=== PATIENT | female | born 1980 | race Caucasian/White ===

== ENCOUNTER 2020-11-26 05:08 | Day surgery (SDC) | payer OTHER ==
[2020-11-22 11:19] LABS: HEMATOCRIT 42.8 % (36.0-48.0); HEMOGLOBIN 14.5 g/dL (12-16); MCH 30.3 pg (26.0-34.0); MCHC 33.9 g/dL (31.0-37.0); MCV 89.5 fL (80.0-100.0); MEAN PLATELET VOLUME 10.8 fL (7.4-10.4); RBC 4.78 10x6/uL (4.00-5.40); RDW 12.8 % (11.5-14.5)
[~2020-11-26] VITALS: Ht 175.3 cm; Wt 82.6 kg
--- NOTE | ~2020-11-26 | OP ---
PATIENT NAME: SARAH HINES MEDICAL RECORD: [id number] :76 LOCATION:D.OPS ADMISSION DATE: SURGEON: JOVAN PURI DO DATE OF OPERATION: 11/26/2020 PREOPERATIVE DIAGNOSIS: Abnormal Pap smear. POSTOPERATIVE DIAGNOSIS: Abnormal Pap smear. PRIMARY SURGEON: Jovan Puri DO ANESTHESIA: General LMA. PROCEDURE: Loop electrosurgical excision procedure. FINDINGS: Normal appearing external genitalia, normal appearing vaginal vault, normal appearing cervix. SPECIMENS: Anterior lip of ectocervix, posterior lip of ectocervix, portion of the endocervix. ESTIMATED BLOOD LOSS: 2 cc. INTRAVENOUS FLUIDS: 1 liter. URINE OUTPUT: Zero cc. COMPLICATIONS: None. CONDITION: Stable. DESCRIPTION OF PROCEDURE: The risks, benefits, alternatives and indications of the procedure were discussed with the patient. She voiced understanding of the procedure and signed the consent. She was taken to the OR where general anesthesia was administered and found to be adequate. She was placed in the dorsal lithotomy position. She was prepped and draped in the normal sterile fashion. A speculum was placed in the posterior aspect of the vagina and the cervix was fully visualized. A medium loop electrode was used to take a portion of the anterior lip of the ectocervix, the posterior lip of the ectocervix and the small loop electrode was used to remove a portion of the endocervix and all specimens were sent to pathology. The rollerball electrocautery was used to coagulate the area of the excision with good hemostasis noted at the end of the procedure. All instruments were removed from the vagina. Hemostasis was adequate. All lap, sponge, and instrument counts were correct times 2. The patient tolerated the procedure well and she was awakened and taken to the recovery room in stable condition. TRANSINT:[id number] Voice Confirmation ID: [id number] DOCUMENT ID: [id number] OPERATIVE REPORT [id number] SARAH HINSE JOVAN PURI DO CC: [id number] DICTATION DATE: 12/06/20 1133 ROLL SETTER: 12/06/20 1223 [facility] 11/26/20 [facility] [address] [place] [address]
[~2020-11-26 05:08] MED LIST: CAMILA0.35 MG PO; CBD GUMMIE PO; FERROUS SULFAT325 MG PO; FLUTICASONE PRO16 GM NASAL; MELATONIN5 M3 PO; MULTI-DAY VITAM1 TAB PO; PROVERA10 MG PO; ZYRTEC10 MG PO; [UNRECOGNIZED DRUG - OTHER] PO
[2020-11-26 06:33] VITALS: BP 117/79; Ht 175.3 cm; Wt 82.6 kg
[2020-11-26 06:47] LABS: HCG URINE NEGATIVE (NEGATIVE)
== END 2020-11-26 09:30 | disposition home or self-care (01) ==
LOC: D.OPS 05:08
PROVIDERS: Anesthesiology; ATTEND Student in an Organized Health Care Education/Training Program
DX: R87.619 Unspecified abnormal cytological findings in specimens from cervix uteri (principal)

== ENCOUNTER 2021-01-07 05:00 | Day surgery (SDC) | payer OTHER ==
[2021-01-03 10:50] LABS: BASOPHILS 0.5 % (0-2); EOSINOPHILS 2.4 % (0-7); HEMATOCRIT 41.2 % (36.0-48.0); LYMPHOCYTES 28.9 % (15-50); MCH 30.5 pg (26.0-34.0); MCHC 34.1 g/dL (31.0-37.0); MCV 89.6 fL (80.0-100.0); MEAN PLATELET VOLUME 8.4 fL (7.4-10.4); MONOCYTES 6.2 % (2-11); PLATELET COUNT 315 10x3/uL (130-400); RDW 13.5 % (11.5-14.5)
[2021-01-03 11:01] LABS: CALC OSMOLALITY 274 mosm/kg (275-300); CALCIUM 8.8 mg/dL (8.5-10.1); CARBON DIOXIDE 25.4 mmol/L (21.0-32.0); CHLORIDE - SERUM 106 mmol/L (98-107); CREATININE - SERUM 0.6 mg/dL (0.6-1.3); GLUCOSE 89 mg/dL (74-106); POTASSIUM - SERUM 3.9 mmol/L (3.5-5.1); SODIUM 139 mmol/L (136-145); UREA NITROGEN 8 mg/dL (7-18); eGFR NON AFRICAN AMERICAN > 90 mL/min (90-120)
[~2021-01-07] VITALS: Ht 175.3 cm; Wt 86.4 kg
[2021-01-07] VITALS (7 sets, daily range): BP systolic 119–127; BP diastolic 64–81; Ht 175.3 cm; Wt 86.4 kg
--- NOTE | ~2021-01-07 | OP ---
PATIENT NAME: SARAH CRUZ MEDICAL RECORD: [id number] :76 LOCATION:[id number] ADMISSION DATE: SURGEON: JOVAN PURI DO DATE OF OPERATION: 01/07/2021 PREOPERATIVE DIAGNOSIS: Abnormal uterine bleeding. POSTOPERATIVE DIAGNOSIS: Abnormal uterine bleeding. PRIMARY PHYSICIAN: Jovan Puri DO WEIGHER PACKING SURGEON: Katie Sepulveda DO ANESTHESIA: General ET tube. PROCEDURE: Total laparoscopic hysterectomy, bilateral salpingectomy and cystoscopy. FINDINGS: Normal appearing external genitalia, normal appearing vaginal vault. Normal appearing cervix. Uterus sounded to 7 cm. Normal appearing uterus with small subserosal fibroids. Normal appearing fallopian tubes, status post tubal ligation, normal appearing bilateral ovaries. Following the hysterectomy, bladder intact with no sutures visible. Positive bilateral ureteral jets. SPECIMENS: Uterus, cervix and portions of bilateral fallopian tubes. ESTIMATED BLOOD LOSS: 15 mL. IV FLUIDS: 1800 mL. URINE OUTPUT: 150 mL clear urine. COMPLICATIONS: None. CONDITION: Stable. DESCRIPTION OF PROCEDURE: The risks, benefits, alternatives, and indications of the procedure were discussed with the patient. She voiced understanding of the procedure and signed the consent. She was taken to the OR where general anesthesia was administered and found to be adequate. She was placed in the dorsal lithotomy position. She was prepped and draped in the normal sterile fashion. A Valadez catheter was inserted under sterile technique. A speculum was placed in the posterior aspect of the vagina and a single tooth tenaculum was used to grasp the anterior lip of the cervix. The uterus was sounded to 7 cm. The cervix was dilated to accommodate the VCare uterine manipulator. The VCare uterine manipulator was placed without difficulty and all other instruments were removed from the vagina at that time. Gloves were changed and attention was then turned to the abdomen. Marcaine was placed in the umbilical fold and a 5-mm incision was created with the scalpel in the umbilical fold. Two towel clamps were used to elevate the abdomen and a 5-mm port was placed with the laparoscope for visualization. Pneumoperitoneum was achieved to 15 mmHg. The patient was placed in Trendelenburg position. A left lower quadrant port was placed at 2 cm superior and 2 cm medial to the left ASIS under direct laparoscopic visualization. A right port was placed 2 cm superior, 2 cm medial to the right ASIS under direct laparoscopic visualization. The bowel was OPERATIVE REPORT [id number] SARAH CRUZ displaced out of the pelvis. The uterus was palpated from below and revealed above findings. Beginning on the right side, the fallopian tube was lifted towards the anterior abdominal wall to expose the mesosalpinx. Working from distal to proximal, the mesosalpinx was coagulated and cut with the Thunderbeat device, hugging adjacent to the tube from distal to proximal in the direction of the cornua. Once the cornua was reached, the tube was ligated and cut and the portion of the fallopian tube was placed in the posterior cul-de-sac to remove. Once the uterus was removed through the vagina, the entire procedure was then repeated on the left. On the right side, the right round ligament was coagulated with the Thunderbeat device and cut and the anterior leaf of the broad ligament was taken down on the right side, dissecting towards the peritoneal reflection at the base of the bladder and adjacent to the cervix. The same process was then repeated on the left side such that both sides met midline and the anterior leaflet had been appropriately skeletonized. Once the bladder was appropriately dissected free from the anterior lower uterine segment and the tissues were skeletonized. Uterine arteries were bilaterally coagulated and cut with good hemostasis noted at the pedicles. At the level of the plastic cup of the uterine manipulator, the vaginal vault was incised circumferentially with the Thunderbeat device. The uterus and tubes were removed through the vagina and sent to pathology. A sterile glove was then placed into the vagina to form a pneumatic seal and all the pedicles as well as the cuff edges were examined. Good hemostasis was noted. Pneumoperitoneum was released and attention was turned to the vagina. The vaginal vault was closed vaginally with 0 Vicryl suture in a running fashion with good hemostasis noted. Gloves were changed and pneumoperitoneum was achieved again to 15 mmHg and the camera was used to ensure a good vaginal cuff closure as well as hemostasis. Hemostasis was adequate as well as the cuff closure. Pneumoperitoneum was released and all ports were removed from the abdomen. Camera was removed from the abdomen. The port sites were closed with 3-0 Monocryl suture and Dermabond covering. Attention was then turned to the cystoscopy portion of the procedure to ensure patent ureters as well as to make sure that the bladder was intact after vaginal closure. The Valadez was removed from the bladder and the cystoscope was inserted. There were no sutures or defects in the bladder noted and good ureteral jets were noted bilaterally. The cystoscope was removed and the Valadez was replaced. All needle, lap, sponge, and instrument counts were correct times 2. The patient tolerated the procedure well and she was awakened and taken to the recovery room in stable condition. TRANSINT:[id number] Voice Confirmation ID: [id number] DOCUMENT ID: [id number] JOVAN PURI DO CC: [id number] DICTATION DATE: 01/08/21 1054 SCREENING REPRESENTATIVE: 01/08/21 1121 [facility] [address] [place] [id number]
[2021-01-07 06:49] LABS: HCG URINE NEGATIVE (NEGATIVE)
--- NOTE | 2021-01-07 11:00 | NUR ---
RECEIVED BY BED TO ROOM FROM OR RECOVERY. SHE IS AWAKE AND ALERT AND ASKING WHERE HER IS AND COULD SOMEONE PLEASE CALL AND GIVE HIM HER ROOM NUMBER. RECOVERY NURSE DOES THIS NOW.
--- NOTE | 2021-01-07 11:12 | NUR ---
RATES PAIN/CRAMPING AT 2/10, C/O THAT SHE FEELS THE URGE TO PEE, SHE STATES UNDERSTANDING THAT TERRAZAS CATH IN PLACE TO DRAIN HER BLADDER, AND THAT WHAT SHE WAS FEELING WAS NORMAL SENSATION. ABD SOFT TO TOUCH AND SHE DENIES PAIN OR TENDERNESS AT THIS TIME, LAB INCISION NOTED TO RLQ AND UMBILICAL AREA. BOTH ARE CLEAN AND DRY WITH DERMABOND IN PLACE. TERRAZAS TO BEDSIDE DRAIN, 200ML BLUE COLORED URINE NOTED TO UROMETER. IV TO LEFT WRIST PATENT AND INFUSING PER ORDERS. DENIES NAUSEA AT THIS TIME. LARGE CUP OF ICE WATER REQUESTED. SIDE RAILS UP X 2 WITH PHONE AND CALL LIGHT IN REACH.
--- NOTE | 2021-01-07 11:15 | NUR ---
PT SPOUSE AT BEDSIDE. SHE CONTINUES TO RATE PAIN AT 2/10. DENIES NEEDS
--- NOTE | 2021-01-07 13:00 | NUR ---
RATES PAIN AT 0/10 AT THIS TIME. JELLO AND LARGE CUP OF ICE REQUESTED. NO OTHER NEEDS AT THIS TIME. CALL LIGHT IN REACH, SIDE RAILS UP X 2 AND SPOUSE PRESENT.
--- NOTE | 2021-01-07 13:15 | NUR ---
BONDING WITH INFANT, RATES PAIN AT 3/10. NEW ICE PACK PROVIDED REQUESTED ALONG WITH LARGE ICE WATER. FUNDUS FIRM AT U/1 WITH LIGHT BLEEDING NOTED. 350ML CLEAR URINE TO UROMETER. CALL LIGHT IN REACH
--- NOTE | 2021-01-07 16:30 | NUR ---
DR PURI AT BEDSIDE.
--- NOTE | 2021-01-07 17:00 | NUR ---
IV SALINE LOCKED AND FLUSHED EASILY WITH 5ML NS. TERRAZAS D/C WITH CATH NOTED TO BE INTACT. TOTAL OF 2200ML CLEAR URINE NOTED. PT ABLE TO GET SELF UP TO BATHROOM AND VOIDS 100ML WITHOUT COMPLAINT. PT AND SPOUSE AMB TO NURSERY WINDOW.
--- NOTE | 2021-01-07 17:22 | NUR ---
BACK TO ROOM, LARGE CUP OF ICE REQUESTED. DENIES DINNER TRAY STATES THAT HER IS GOING TO GO PICK SOMETHING UP. RATES PAIN AT 3/10 AT THIS TIME. CALL LIGHT IN REACH WITH SIDE RAILS UP X 2.
--- NOTE | 2021-01-07 19:30 | NUR ---
FIRST MET PT WHILE SHE WAS IN THE HALLS WALKING. SHE IS DOING WELL WITH NO PAIN AT THIS TIME. EXPLAINED TO PT THAT I WOULD BE IN HER ROOM SOON FOR FULL ASSESSMENT.
--- NOTE | 2021-01-07 20:15 | NUR ---
ASSESSMENT COMPLETED. PT STILL WALKS THE HALLS FREQUENTLY. PT IS S/P LAP CHATA. SHE HAS THREE SMALL INCISIONS WHICH LOOK GOOD. THERE IS NOT DRAINAGE OR REDNESS NOTED AT ALL. HER TERRAZAS CATHETER IS OUT AND SHE IS VOIDING WELL. HER IS HERE. PT HAS NO C/O PAIN AND HAS TAKEN NO PAIN MEDS. SHE STATES SHE FEELS UNCOMFORTABLE LIKE BLOATING IN HER ABD. SHE HAS NO C/O OR NEEDS AT THIS TIME.
--- NOTE | 2021-01-07 21:30 | NUR ---
PT READY TO SLEEP. FOUND A SCD PUMP AND HER SCD'S ARE ON FOR SLEEP. SHE WAS INSTRUCTED HOW TO TAKE THE SCDS ON AND OFF SO SHE CAN GO TO THE BR. SHE ALSO KNOWS THAT ALL SHE HAS TO DO IS CALL ME AND I'LL BE THERE TO ASSIST HER.
--- NOTE | 2021-01-07 21:34 | NUR ---
PT GIVEN HER ORDERED TORADOL. SHE C/O OF HOW BAD THE MEDICATION HURT GOING IN THE VEIN. WITH THE FLUSH THAT FOLLOWED THIS BURNING EASED. THIS WAS HER THIRD AND LAST DOSE. (09/11) SHE GOT UP TO THE BR AND I WATCHED HER TAKE THE SCD OFF AND SHE DID QUITE WELL.
[2021-01-08 00:45] VITALS: BP 101/56
--- NOTE | 2021-01-08 00:48 | NUR ---
IN PT ROOM FOR VS. PT ACTED UNCOMFORTABLE. I ASKED HER IF SHE WAS HURTING. I TOLD HER TO LET ME GET HER SOME PAIN MEDS IF SHE WAS HURTING. SHE ADMITTED THAT SHE HAD PAIN THAT SHE RATED A 7. I BROUGHT HER A NORCO 10 MG PO WHICH SHE TOOK. HER IS IN THE ROOM WITH HER.
--- NOTE | 2021-01-08 03:12 | NUR ---
PT IS SLEEPING. NO C/O OR NEEDS AT THIS TIME. ASLEEP AT BEDSIDE.
--- NOTE | 2021-01-08 05:29 | NUR ---
PT CONT TO REST WITH HER EYES CLOSED.
--- NOTE | 2021-01-08 08:20 | NUR ---
DR. PURI ON UNIT, VERBAL ORDER RECEIVED FROM TO HAVE CBC DRAWN NOW. CBC ORDERED.
[2021-01-08 09:31] LABS: BASOPHILS 0.3 % (0-2); EOSINOPHILS 0.7 % (0-7); HEMATOCRIT 37.1 % (36.0-48.0); HEMOGLOBIN 11.9 g/dL (12-16); LYMPHOCYTES 22.6 % (15-50); MCH 29.3 pg (26.0-34.0); MCHC 32.2 g/dL (31.0-37.0); MEAN PLATELET VOLUME 8.7 fL (7.4-10.4); MONOCYTES 9.7 % (2-11); NEUTROPHILS 66.7 % (40-80); PLATELET COUNT 276 10x3/uL (130-400); RBC 4.07 10x6/uL (4.00-5.40); RDW 13.8 % (11.5-14.5); WBC 14.3 10x3/uL (4.8-10.8)
[2021-01-08 09:45] VITALS: BP 98/57
--- NOTE | 2021-01-08 09:45 | NUR ---
AM ASSESSMENT COMPLETED, SEE FLOWSHEET. PT IS RESTING IN THE BED, WATCHING TV, WITH SIG OTHER AT BEDSIDE. PT REPORTS LOWER LEFT ABD PAIN AT LAP INCISIONAL SITE AFTER SHE WENT WALKING THE UNIT THIS AM. NO DISTENTION NOTED, ABDOMEN TENDER TO TOUCH AT SITE, NO REDNESS NOTED, LAP INCISIONS C/D/I. PT DENIES N/V, DIZZINES, SOB OR DIFFICULTY BREATHING. PT IS DRINKING SPLASH/NESTLE WATER, DENIES ALL OTHER NEEDS. AWAITING LAB RESULTS.
--- NOTE | 2021-01-08 10:15 | NUR ---
PHONE CALL MADE TO DR. PURI TO REPORT AM LAB DRAW. MD HAS REVIEWED THESE, AND WILL PLACE ORDER FOR REPEAT LAB WORK AT 1500 TO COMPARE. VS REVIEWED BY . TO ROOM, PLAN OF CARE EXPLAINED TO PT AND SIG OTHER. PT DENIES ALL OTHER NEEDS AT THIS TIME. SRUP X2, CL/PHONE WITHIN REACH.
--- NOTE | 2021-01-08 13:50 | NUR ---
TO PT'S ROOM FOR ROOM CHECK AND TO OFFER PAIN MEDICATION, PT IS ASLEEP, RESP EVEN AND UL, PT NOT DISTURBED, SR UP X2, CL/PHONE WITHIN REACH.
[2021-01-08 15:36] LABS: HEMATOCRIT 38.4 % (36.0-48.0); HEMOGLOBIN 12.6 g/dL (12-16); MCH 29.8 pg (26.0-34.0); MCHC 32.7 g/dL (31.0-37.0); MCV 91.2 fL (80.0-100.0); MEAN PLATELET VOLUME 8.6 fL (7.4-10.4); PLATELET COUNT 264 10x3/uL (130-400); RBC 4.22 10x6/uL (4.00-5.40); RDW 13.8 % (11.5-14.5); WBC 13.4 10x3/uL (4.8-10.8)
--- NOTE | 2021-01-08 16:30 | NUR ---
PT UP WALKING THE HALLWAYS WITH SIG OTHER. TELEPHNE CALL MADE TO DR. PURI, WITH REPEAT LAB RESULTS GIVEN TO MD, TELEPHONE ORDER RECEIVED TO DISCHARGE PT HOME TO FOLLOW UP IN [address] PURI. PRESCRIPTION FOR PERCOCET 5 MG ON CHART FOR DISCHARGE.
[2021-01-08] MEDS ORDERED: PERCOCET 5-3251 TAB PO (16:55)
--- NOTE | 2021-01-08 17:15 | NUR ---
DISCHARGE INSTRUCTIONS EXPLAINED TO PT, COPIES PROVIDED. SL DC'D WITH CATH INTACT. PT DENIES QUESTIONS. PRESCRIPTION GIVEN. PT OFF UNIT AMBULATORY WITH SIG OTHER, IN STABLE CONDITION. PT REFUSES W/C.
[2021-01-08 18:07] LABS: EOSINOPHILS 2 % (0-7); LYMPHOCYTES 44 % (15-50); MONOCYTES 2 % (2-11); NEUTROPHILS 52 % (40-80); PLATELET ESTIMATE NORMAL
== END 2021-01-08 17:15 | disposition home or self-care (01) ==
LOC: D.OPS 05:00 → D.WS 10:45 → D.OPS 01-08 17:15
PROVIDERS: ATTEND Student in an Organized Health Care Education/Training Program
DX: N93.9 Abnormal uterine and vaginal bleeding, unspecified (principal); R87.619 Unspecified abnormal cytological findings in specimens from cervix uteri